=== PATIENT | male | born 1955 | race Caucasian/White ===

== ENCOUNTER 2016-09-07 02:45 | Emergency (ER) | payer MEDICAID ==
[2016-09-07] MEDS ORDERED: AMOX/CLAV 875 MG/125 MG TABLET PO STA (02:53)
[2016-09-07] MEDS ORDERED: AMOX/CLAV 875 MG/125 MG TABLET PO ONE (02:57)
== END 2016-09-07 03:48 | disposition home or self-care (01) ==
DX: J32.9 Chronic sinusitis, unspecified (principal); Z87.891 Personal history of nicotine dependence
CPT/HCPCS: 36415; 71020; 80053; 83690; 84484; 85025; 87275; 87276; 99283; 99284; A9270

== ENCOUNTER 2016-10-16 13:15 | Outpatient (CLI) | payer MEDICAID | END 2016-10-16 13:30 | disposition home or self-care (01) | DX: R07.89 Other chest pain (principal) ==

== ENCOUNTER 2016-11-06 08:29 | Outpatient (CLI) | payer MEDICAID ==
[2016-11-06 13:48] LABS: CHOL/HDL RATIO 6.1 (<5.0); CHOLESTEROL 190 mg/dL; HDL CHOLESTEROL 31 mg/dL; LDL/HDL RATIO 4.1 (<3.6); TRIGLYCERIDES 165 mg/dL; VLDL CHOLESTEROL 33 mg/dL
== END 2016-11-06 08:30 | disposition home or self-care (01) ==
LOC: LAB.N 08:29
PROVIDERS: ATTEND Internal Medicine Cardiovascular Disease
DX: R07.89 Other chest pain (principal); Z68.37 Body mass index [BMI] 37.0-37.9, adult
CPT/HCPCS: 36415; 80061

== ENCOUNTER 2016-12-18 20:41 | Outpatient (CLI) | payer MEDICAID ==
--- NOTE | 2016-12-18 21:39 | Ultrasound Preliminary Report ---
Exam: US Duplex Ext Veins Right IMPRESSION: No evidence for deep venous thrombosis. [facility] SITE ID: [id number]
--- NOTE | 2016-12-18 21:42 | Ultrasound Report ---
EXAM: RIGHT LOWER EXTREMITY VENOUS ULTRASOUND EXAM DATE: 12/18/2016 09:22 PM. CLINICAL HISTORY: LOWER EXTREMITY EDEMA,RIGHT. COMPARISON: None. TECHNIQUE: Real-time sonographic vascular imaging was performed by the tab card press operator through the lower extremity utilizing both color-flow and Doppler spectral analysis. Multiple players club representative static kalpana ges were saved for review. FINDINGS: Common Femoral Vein (CFV): Normal. CFV-GSV Junction: Normal. Profunda Femoral Vein (PFV): Normal. Femoral Vein (FV) Prox: Normal. Femoral Vein (FV) Mid: Normal. Femoral Vein (FV) Dist: Normal. Popliteal Vein: Normal. Posterior Tibial Veins: Normal. Peroneal Veins: Normal. Contralateral Side CFV: Normal. Other: None. IMPRESSION: No evidence for deep venous thrombosis. [facility] Referring Provider Line: [phone] SITE ID: [id number]
== END 2016-12-18 20:42 | disposition home or self-care (01) ==
LOC: DI 20:41
PROVIDERS: ATTEND Family Medicine
DX: R60.0 Localized edema (principal)

== ENCOUNTER 2017-01-02 21:23 | Emergency (ER) | payer MEDICAID ==
[2017-01-02 21:29] VITALS: BP 133/83
[2017-01-02] MEDS ORDERED: AZITHROMYCIN 250 MG TABLET PO STA (22:43)
[2017-01-02] MEDS ORDERED: DEXAMETHASONE 10 MG/ML VIAL PO STA (22:43)
[2017-01-02] MEDS ORDERED: AZITHROMYCIN 250 MG TABLET PO ONE (22:45)
[2017-01-02] MEDS ORDERED: DEXAMETHASONE 10 MG/ML VIAL ONE (22:45)
--- NOTE | 2017-01-02 22:45 | ED Physician Documentation ---
PD HPI HEENT - Stated complaint Stated Complaint: LT EAR/JAW PX - Chief complaint Chief Complaint: Heent - History obtained from History obtained from: Patient, Family - History of Present Illness Timing - onset: How many weeks ago (2) Timing - duration: Weeks (2) Timing - details: Gradual onset, Still present, Waxing and waning Location: Left ear Improves: Medication Associated symptoms: Other (has developed some pain in the left jaw when he bites down.). No: Fever, Congestion, Rhinorrhea, Trismus, Unable to swallow, Swollen nodes, Facial swelling, Headache, Cough Similar symptoms before: Diagnosis (OM) Recently seen: Not recently seen - Additional information Additional information: 61-year-old male has had some pain in his left ear for the past 2 weeks. The pain has waxed and waned and then tonight the pain has mounted over the past 8 hours. He is to finally decided to come in to be seen.He is not having cough congestion or fever associated with this. He has had prior problems with sinus infections when he used to smoke. He has not smoked for 8 years. Review of Systems Constitutional: denies: Fever, Chills Eyes: denies: Loss of vision Ears: reports: Ear pain, Tinnitus/ringing. denies: Loss of hearing Nose: denies: Rhinorrhea / runny nose, Congestion Throat: denies: Sore throat Cardiac: denies: Chest pain / pressure Respiratory: denies: Cough GI: denies: Vomiting PD PAST MEDICAL HISTORY - Past Medical History Past Medical History: Yes Cardiovascular: None Respiratory: None Neuro: None Endocrine/Autoimmune: None GI: None : Kidney stones HEENT: None Psych: Anxiety Musculoskeletal: Osteoarthritis, Chronic back pain Derm: None - Past Surgical History Past Surgical History: Yes Ortho: Knee replacement HEENT: Tonsil/Adenoidectomy - Present Medications Home Medications: Ambulatory Orders Medication Instructions Recorded Confirmed Azithromycin [Zithromax] 250 mg PO DAILY #4 tablet 01/02/17 - Allergies Allergies/Adverse Reactions: Allergies Allergy/AdvReac Type Severity Reaction Status Date / Time aspirin Allergy Rash Verified 01/02/17 21:26 NSAIDS (Non-Steroidal Allergy Rash Verified 01/02/17 21:26 Anti-Inflamma - Social History Does the pt smoke?: No Smoking Status: Former smoker Does the pt drink ETOH?: Yes Does the pt have substance abuse?: No - Immunizations Immunizations are current?: Yes - POLST Patient has POLST: No PD ED PE NORMAL - Vitals Vital signs reviewed: Yes (Hypertensive) - General General: No acute distress, Well developed/nourished - HEENT HEENT: Atraumatic, PERRL, EOMI, Moist mucous membranes, Pharynx benign, Other ( Both TMs are inflamed with flattening of the umbo the left is more so than the right.) - Neck Neck: Supple, no meningeal sign, No bony TTP - Cardiac Cardiac: RRR, No murmur - Respiratory Respiratory: No respiratory distress, Clear bilaterally - Abdomen Abdomen: Soft, Non tender - Derm Derm: Normal color, Warm and dry, No rash - Extremities Extremities: No deformity, No edema - Neuro Neuro: No motor deficit, No sensory deficit - Psych Psych: Normal mood, Normal affect Results - Vitals Vitals: Vital Signs - 24 hr 01/02/17 21:27 Temperature 36.4 C L Heart Rate 84 Respiratory 16 Rate Blood Pressure 133/83 H O2 Saturation 98 Oxygen O2 Source [With Activity] Room air O2 Source Room air PD MEDICAL DECISION MAKING - ED course Complexity details: considered differential, d/w patient, d/w family ED course: 61-year-old male with otitis media bilaterally is treated with dexamethasone 10 mg and azithromycin 500 mg. Departure - Departure Disposition: 01 Home, Self Care Clinical Impression: Otitis media Qualifiers: Otitis media type: suppurative Laterality: bilateral Chronicity: acute Recurrence: not specified as recurrent Spontaneous tympanic membrane rupture: without spontaneous rupture Qualified Code(s): H66.003 - Acute suppurative otitis media without spontaneous rupture of ear drum, bilateral Instructions: ED Otitis Media Acute Adult Follow-Up: Francesco Andrade MD [Primary Care Provider] - Prescriptions: Azithromycin [Zithromax] 250 mg PO DAILY #4 tablet
== END 2017-01-02 23:02 | disposition home or self-care (01) ==
LOC: ED 21:23
DX: H66.003 Acute suppurative otitis media without spontaneous rupture of ear drum, bilateral (principal); Z96.659 Presence of unspecified artificial knee joint; Z87.891 Personal history of nicotine dependence
CPT/HCPCS: 99283; A9270

== ENCOUNTER 2017-01-05 14:27 | Emergency (ER) | payer MEDICAID ==
[2017-01-05] MEDS ORDERED: oxyCOD/ACETAMIN 5 MG/325 MG TABLET PO STA (15:35)
[2017-01-05] MEDS ORDERED: CLINDAMYCIN 150 MG CAPSULE PO STA (15:35)
[2017-01-05] MEDS ORDERED: oxyCOD/ACETAMIN 5 MG/325 MG TABLET PO ONE (16:08)
[2017-01-05] MEDS ORDERED: CLINDAMYCIN 150 MG CAPSULE PO ONE (16:08)
[2017-01-05 17:07] VITALS: BP 116/77
--- NOTE | 2017-01-05 17:09 | ED Physician Documentation ---
History of Present Illness - Stated complaint Stated Complaint: LEFT FACE SWOLLEN - Chief complaint Chief Complaint: Heent - History obtained from History obtained from: Patient - Additonal information Additional information: This patient is a 61-year-old man who presents with a complaint of right periauricular pain and swelling. He says he was diagnosed earlier with ear infection but now the area in front of his ear is swollen, tender and painful. He does say that he has been working outside and might have been dehydrated. He denies ever having this problem before. He denies any fever or chills. He has no chest pain, shortness of breath, nausea, vomiting, constipation or diarrhea. Review of systems: For pertinent positive and negative questions for the review of systems please see history of present illness. Otherwise all other systems have been reviewed and are negative. Dragon disclaimer: Parts of this medical record were created using voice recognition technology. Because of the inherent limitations of this system occasional same sounding word substitutions do occur and persist despite proofreading. Please read the document for context. PD PAST MEDICAL HISTORY - Past Medical History Cardiovascular: None Respiratory: None Neuro: None Endocrine/Autoimmune: None GI: None : Kidney stones HEENT: None Psych: Anxiety Musculoskeletal: Osteoarthritis, Chronic back pain Derm: None - Past Surgical History Past Surgical History: Yes Ortho: Knee replacement HEENT: Tonsil/Adenoidectomy - Present Medications Home Medications: Ambulatory Orders Medication Instructions Recorded Confirmed Azithromycin [Zithromax] 250 mg PO DAILY #4 tablet 01/02/17 01/05/17 Clindamycin HCl 300 mg PO QID #28 capsule 01/05/17 Tramadol HCl 50 mg PO Q8HR PRN #14 tablet 01/05/17 - Allergies Allergies/Adverse Reactions: Allergies Allergy/AdvReac Type Severity Reaction Status Date / Time aspirin Allergy Rash Verified 01/02/17 21:26 NSAIDS (Non-Steroidal Allergy Rash Verified 01/02/17 21:26 Anti-Inflamma - Social History Does the pt smoke?: No Smoking Status: Former smoker Does the pt drink ETOH?: Yes Does the pt have substance abuse?: No - Immunizations Immunizations are current?: Yes - POLST Patient has POLST: No PD ED PE NORMAL - General General: Alert and oriented X 3, No acute distress, Well developed/nourished - HEENT HEENT: Atraumatic, PERRL, EOMI, Ears normal, Other (Soft tissue swelling warmth , and tenderness to right parotid gland.-No stone in Stensen's duct seen) - Neck Neck: Supple, no meningeal sign - Cardiac Cardiac: RRR, No murmur - Respiratory Respiratory: No respiratory distress - Abdomen Abdomen: Normal bowel sounds, Soft, Non tender - Male Male : Deferred - Derm Derm: Normal color, Warm and dry - Extremities Extremities: No deformity, No tenderness to palpate - Neuro Neuro: Alert and oriented X 3, fire supervisor 2-12 intact Results - Vitals Vitals: Vital Signs - 24 hr 01/05/17 01/05/17 14:41 17:06 Temperature 36.7 C 36.6 C Heart Rate 74 70 Respiratory 20 16 Rate Blood Pressure 123/82 H 116/77 O2 Saturation 96 97 Oxygen O2 Source [With Activity] Room air O2 Source Room air PD MEDICAL DECISION MAKING - ED course ED course: Patient is a 61-year-old man who presents with right parotid gland pain, swelling and discomfort on examination there is moderate inflammation and tenderness without fluctuance of the right parotid gland. Structurally the ear , the face and intraoral structures are all normal. The patient's salivary duct was palpated there is no expressible pus. I did not see any obvious stone. At this point in time it looks like a case ParotitisPossibly also related to dehydration which he admits to. At this point in time am recommending increase fluids, changing antibiotics to clindamycin the small amount of pain medication, topical warm compresses and follow-up with his physician. Disposition: To home Clinical impression: 1. Acute peritonitis Departure - Departure Disposition: 01 Home, Self Care Clinical Impression: Parotitis, acute Condition: Good Instructions: ED Submandibular Gland Infec Follow-Up: Francesco Andrade MD [Primary Care Provider] - Prescriptions: Tramadol HCl 50 mg PO Q8HR PRN #14 tablet PRN Reason: Pain Clindamycin HCl 300 mg PO QID #28 capsule Comments: Increase fluid significantly, warm compresses to Right ear area, stop azithromycin, start clindamycin and follow-up with your doctor or return if significantly worse
== END 2017-01-05 17:13 | disposition home or self-care (01) ==
LOC: ED 14:27
DX: K11.20 Sialoadenitis, unspecified (principal); Z87.891 Personal history of nicotine dependence
CPT/HCPCS: 99282; 99283; A9270

== ENCOUNTER 2017-04-07 20:40 | Emergency (ER) | payer MEDICAID ==
[2017-04-07 21:20] LABS: BASOPHILS # (AUTO) 0.1 10^3/uL (0.0-0.1); BASOPHILS % (AUTO) 0.9 %; EOSINOPHILS # (AUTO) 0.3 10^3/uL (0.0-0.7); EOSINOPHILS % (AUTO) 2.8 %; HCT - HEMATOCRIT 45.6 % (42.0-52.0); HGB - HEMOGLOBIN 15.1 g/dL (14.0-18.0); LYMPHOCYTES # (AUTO) 3.1 10^3/uL (1.5-3.5); LYMPHOCYTES % (AUTO) 28.9 %; MEAN CORPUSCULAR HEMOGLOBIN 28.2 pg (27.0-31.0); MEAN CORPUSCULAR HGB CONC 33.2 g/dL (32.0-36.0); MEAN CORPUSCULAR VOLUME 84.9 fL (80.0-94.0); MEAN PLATELET VOLUME 7.3 fL (7.4-11.4); MONOCYTES # (AUTO) 0.9 10^3/uL (0.0-1.0); MONOCYTES % (AUTO) 8.3 %; NEUTROPHILS # (AUTO) 6.3 10^3/uL (1.5-6.6); NEUTROPHILS % (AUTO) 59.1 %; RED BLOOD COUNT 5.37 10^6/uL (4.70-6.10); RED CELL DISTRIBUTION WIDTH 13.3 % (12.0-15.0); UNCORRECTED WHITE BLOOD COUNT 10.7 x10^3/uL; WHITE BLOOD COUNT 10.7 x10^3/uL (4.8-10.8)
[2017-04-07 21:32] LABS: ALBUMIN/GLOBULIN RATIO 1.1 (1.0-2.2); BILIRUBIN,TOTAL 0.6 mg/dL (0.2-1.0); CALCIUM 8.8 mg/dL (8.5-10.3); CREATININE 1.1 mg/dL (0.6-1.2); POTASSIUM 4.1 mmol/L (3.5-5.0); TOTAL PROTEIN 7.5 g/dL (6.7-8.2)
--- NOTE | 2017-04-07 21:40 | XRAY Preliminary Report ---
Exam: XR CHEST 2 VIEW PA/LAT IMPRESSION: Normal 2-view chest radiography. [facility] SITE ID: [id number]
[2017-04-07] MEDS ORDERED: ACETAMINOPHEN 500 MG TABLET PO STA (21:43)
--- NOTE | 2017-04-07 21:47 | XRAY Report ---
EXAM: CHEST RADIOGRAPHY EXAM DATE: 04/07/2017 09:11 PM. CLINICAL HISTORY: Chest pain today. COMPARISON: 09/07/2016. TECHNIQUE: 2 views. FINDINGS: Lungs/Pleura: No focal opacities evident. No pleural effusion. No pneumothorax. Normal volumes. Mediastinum: Heart and mediastinal contours are unremarkable. Other: None. IMPRESSION: Normal 2-view chest radiography. [facility] Referring Provider Line: [phone] SITE ID: [id number]
[2017-04-07] MEDS ORDERED: ACETAMINOPHEN 500 MG TABLET PO ONE (21:53)
[2017-04-07] MEDS ORDERED: LIDOCAINE PATCH 5% TOP STA (22:03)
[2017-04-07 22:05] VITALS: BP 130/87
[2017-04-07] MEDS ORDERED: LIDOCAINE PATCH 5% TOP ONE (22:09)
--- NOTE | 2017-04-07 22:15 | ED Physician Documentation ---
PD HPI TRUNK INJURY - Stated complaint Stated Complaint: CHEST PX/SOA - Chief complaint Chief Complaint: Cardiac - History obtained from History obtained from: Patient, Family - History of Present Illness Location: Anterior chest Type of injury: Other (sneezing) Timing - onset: How many days ago (4) Timing - details: Abrupt onset, Intermittant Quality: Pain, Sharp Worsened by: Moving, Palpating Associated symtptoms: No: Weakness, Numbness, Tingling, Swelling Where injury occured: Home Similar symptoms before: Has not had sx before Recently seen: Not recently seen - Additional information Additional information: Patient is a 62 year old male presenting to the emergency department for left sided chest pain. patient states that he sneezed a few days ago and felt some sharp pain. Patient states that the pain came back when he sneezed again and he felt it when he coughed. Patient states that he thinks he pulled a muscle or hurt his rib. Review of Systems Constitutional: denies: Fever, Chills Eyes: denies: Decreased vision Ears: denies: Ear pain, Drainage/discharge Nose: denies: Congestion Throat: denies: Sore throat Cardiac: reports: Chest pain / pressure. denies: Palpitations Respiratory: denies: Dyspnea, Cough, Wheezing GI: denies: Nausea, Vomiting : denies: Dysuria, Frequency Skin: denies: Rash, Lesions, Abrasion (s), Laceration (s) Musculoskeletal: denies: Neck pain, Back pain, Extremity pain, Joint pain Neurologic: denies: Generalized weakness, Focal weakness, Headache Immunocompromised: denies: Immunocompromised PD PAST MEDICAL HISTORY - Past Medical History Cardiovascular: None Respiratory: None Neuro: None Endocrine/Autoimmune: None GI: None : Kidney stones HEENT: None Psych: Anxiety Musculoskeletal: Osteoarthritis, Chronic back pain Derm: None - Past Surgical History Past Surgical History: Yes Ortho: Knee replacement HEENT: Tonsil/Adenoidectomy - Present Medications Home Medications: Ambulatory Orders Medication Instructions Recorded Confirmed Azithromycin [Zithromax] 250 mg PO DAILY #4 tablet 01/02/17 01/05/17 Clindamycin HCl 300 mg PO QID #28 capsule 01/05/17 Tramadol HCl 50 mg PO Q8HR PRN #14 tablet 01/05/17 Lidocaine Patch 5% [Lidoderm Patch] 1 each TOP DAILY #10 patch 04/07/17 - Allergies Allergies/Adverse Reactions: Allergies Allergy/AdvReac Type Severity Reaction Status Date / Time aspirin Allergy Rash Verified 01/02/17 21:26 NSAIDS (Non-Steroidal Allergy Rash Verified 01/02/17 21:26 Anti-Inflamma - Social History Does the pt smoke?: No Smoking Status: Never smoker Does the pt drink ETOH?: Yes Does the pt have substance abuse?: No - Immunizations Immunizations are current?: Yes - POLST Patient has POLST: No PD ED PE NORMAL - Vitals Vital signs reviewed: Yes - General General: Alert and oriented X 3, No acute distress, Well developed/nourished - HEENT HEENT: Atraumatic, PERRL, Pharynx benign - Neck Neck: Supple, no meningeal sign, No JVD - Cardiac Cardiac: RRR, No murmur, No rub - Respiratory Respiratory: No respiratory distress, Clear bilaterally - Abdomen Abdomen: Soft, Non tender, Non distended - Derm Derm: Normal color, Warm and dry, No rash - Extremities Extremities: No deformity - Neuro Neuro: Alert and oriented X 3, No motor deficit, No sensory deficit, Normal speech - Psych Psych: Normal mood, Normal affect PD ED PE EXPANDED - Cardiac Cardiac: Chest wall TTP (left anterior chest wall tenderness to palpation, no gross deformity) Results - Vitals Vitals: Vital Signs - 24 hr 04/07/17 04/07/17 20:50 22:04 Temperature 36.6 C Heart Rate 80 70 Respiratory 17 18 Rate Blood Pressure 166/100 H 130/87 H O2 Saturation 95 99 Oxygen O2 Source [] Room air O2 Source Room air - EKG (time done) 2052 Rate: Rate (enter#) (80) Rhythm: NSR [place]: Normal Intervals: Normal MS QRS: Normal Ischemia: Normal ST segments Compare to prior EKG: Unchanged from prior EKG Computer interpretation: Agree with computer - Labs Labs: Laboratory Tests 04/07/17 04/07/17 04/07/17 21:14 21:14 21:14 WBC 10.7 RBC 5.37 Hgb 15.1 Hct 45.6 MCV 84.9 MCH 28.2 MCHC 33.2 RDW 13.3 Plt Count 277 MPV 7.3 L Neut # 6.3 Lymph # 3.1 [place] # 0.9 Eos # 0.3 Baso # 0.1 Absolute Nucleated RBC 0.00 Nucleated RBC % 0.0 Sodium 138 Potassium 4.1 Chloride 104 Carbon Dioxide 26 Anion Gap 8.0 BUN 17 Creatinine 1.1 Estimated GFR (MDRD) 68 L Glucose 105 H Calcium 8.8 Total Bilirubin 0.6 AST 21 ALT 32 Alkaline Phosphatase 95 Troponin I < 0.04 Total Protein 7.5 Albumin 4.0 Globulin 3.5 Albumin/Globulin Ratio 1.1 Lipase 28 - Rads (name of study) chest Radiology: Final report received (normal 2 view chest x-ray) PD MEDICAL DECISION MAKING - ED course Complexity details: reviewed old records, reviewed results, re-evaluated patient , considered differential, d/w patient, d/w family ED course: Patient was seen and examined at bedside. labs were drawn, ekg was performed which was normal sinus rhythm. chest x-ray was performed and was within normal limits. Patient was treated with a lidoderm patch. patient had a heart score of 1 for his age and was low risk. Patient required no further work up and was stable for discharge with outpatient follow up. Departure - Departure Disposition: 01 Home, Self Care Clinical Impression: Muscle strain of anterior chest wall Condition: Good Instructions: ED Chest Pain NonCardiac Follow-Up: Francesco Andrade MD [Primary Care Provider] - As Needed Prescriptions: Lidocaine Patch 5% [Lidoderm Patch] 1 each TOP DAILY #10 patch Comments: Your diagnostics today were within normal limits. Your symptoms are unlikely to be cardiac in nature. You should use the lidoderm patches as needed. You can follow up with your pmd as needed if the symptoms don't resolve. You may retunr to the emergency department at any time for new, worsening or uncontrollable symptoms. Discharge Date/Time: 04/07/17 22:23
== END 2017-04-07 22:23 | disposition home or self-care (01) ==
LOC: ED 20:40
DX: S29.011A Strain of muscle and tendon of front wall of thorax, initial encounter (principal); Z96.659 Presence of unspecified artificial knee joint; X58.XXXA Exposure to other specified factors, initial encounter
CPT/HCPCS: 36415; 71020; 80053; 83690; 84484; 85025; 93005; 99283; 99285; A9270

== ENCOUNTER 2017-08-04 09:41 | Outpatient (CLI) | payer MEDICAID ==
--- NOTE | 2017-08-05 09:30 | Nuclear Medicine Report ---
EXAM: TRIPLE-PHASE BONE SCAN LIMITED EXAM DATE: 08/04/2017 02:31 PM. CLINICAL HISTORY: S/P RT PARTIAL KNEE WITH PAIN. COMPARISON: None. TECHNIQUE: Patient was injected with 32.8 mCi of technetium 99m MDP intravenously with flow phase shay ma camera imaging anteriorly over the knees, 5 seconds per frame for 1 minute. Subsequently, blood po ol images of the knees were obtained. The patient returned 3 hours later for multiple spot images of knees. FINDINGS: Flow Phase: There is symmetric flow to bilateral there is linear activity along the lateral femoral c ondyle of the right knee. No other tracer accumulation seen. Blood Pool Phase: Persistent activity along lateral femoral condyle. There is mild uptake over the me dial compartment of the left knee. Delayed Phase: Bone scan images of the knees reveal persistent moderate activity along the lateral fe moral condyle of the right knee. There is also uptake along the medial tibial plateau components of t he knee prosthesis. Intense uptake seen involving the medial compartment of the left knee.. IMPRESSION: 1. Mild delayed phase activity along tibial plateau component of right knee prosthesis. This may repr esent residual post operative activity. Correlation with radiographs may be helpful to exclude loosen ing. 2. There is abnormal activity y along the lateral femoral condyle of the right knee. Correlation with point tenderness at this site and radiographs recommended. 3. Left knee degenerative changes. [facility] Referring Provider Line: [phone] SITE ID: [id number]
== END 2017-08-04 09:42 | disposition home or self-care (01) ==
LOC: DI 09:41
PROVIDERS: ATTEND Orthopaedic Surgery
DX: M25.561 Pain in right knee (principal); M17.12 Unilateral primary osteoarthritis, left knee; Z96.651 Presence of right artificial knee joint
CPT/HCPCS: 78300; A9503

== ENCOUNTER 2017-10-28 08:00 | Outpatient (CLI) | payer MEDICAID ==
[2017-10-28 13:37] LABS: ALBUMIN/GLOBULIN RATIO 1.2 (1.0-2.2); ALKALINE PHOSPHATASE 96 IU/L (42-121); ALT ALANINE AMINOTRANSFERASE 35 IU/L (10-60); AST ASPARTATE AMINOTRANSFERASE 21 IU/L (10-42); BILIRUBIN,TOTAL 0.6 mg/dL (0.2-1.0); BUN - BLOOD UREA NITROGEN 15 mg/dL (6-20); CALCIUM 8.8 mg/dL (8.5-10.3); CARBON DIOXIDE - CO2 27 mmol/L (21-32); CHLORIDE 104 mmol/L (101-111); CHOL/HDL RATIO 5.9 (<5.0); CHOLESTEROL 171 mg/dL; GFR - MDRD 76 (>89); GLUCOSE 148 mg/dL (70-100); HDL CHOLESTEROL 29 mg/dL; LDL CHOLESTEROL,CALCULATED 110 mg/dL; LDL/HDL RATIO 3.8 (<3.6); SODIUM 137 mmol/L (135-145); TOTAL PROTEIN 7.3 g/dL (6.7-8.2); VLDL CHOLESTEROL 32 mg/dL
[2017-10-28 13:50] LABS: BASOPHILS # (AUTO) 0.1 10^3/uL (0.0-0.1); BASOPHILS % (AUTO) 0.6 %; EOSINOPHILS # (AUTO) 0.3 10^3/uL (0.0-0.7); EOSINOPHILS % (AUTO) 3.2 %; HGB - HEMOGLOBIN 14.5 g/dL (14.0-18.0); LYMPHOCYTES % (AUTO) 24.7 %; MEAN CORPUSCULAR HEMOGLOBIN 28.6 pg (27.0-31.0); MEAN CORPUSCULAR HGB CONC 33.8 g/dL (32.0-36.0); MEAN CORPUSCULAR VOLUME 84.6 fL (80.0-94.0); MEAN PLATELET VOLUME 8.2 fL (7.4-11.4); MONOCYTES # (AUTO) 0.7 10^3/uL (0.0-1.0); MONOCYTES % (AUTO) 8.3 %; NEUTROPHILS % (AUTO) 63.2 %; PLT - PLATELET COUNT 271 10^3/uL (130-450); RED BLOOD COUNT 5.08 10^6/uL (4.70-6.10); RED CELL DISTRIBUTION WIDTH 13.3 % (12.0-15.0)
[2017-10-28 13:54] LABS: HB2 TOTAL 16.3 g/dL; HEMOGLOBIN A1C 0.82 g/dL; HEMOGLOBIN A1C % 6.8 % (4.6-6.2)
== END 2017-10-28 08:01 | disposition home or self-care (01) ==
LOC: LAB.N 08:00
PROVIDERS: ATTEND Family Medicine
DX: Z00.00 Encounter for general adult medical examination without abnormal findings (principal); I10 Essential (primary) hypertension; E66.9 Obesity, unspecified; R73.9 Hyperglycemia, unspecified; E78.5 Hyperlipidemia, unspecified
CPT/HCPCS: 36415; 80053; 80061; 83036; 83721; 84443; 85025

== ENCOUNTER 2018-07-15 08:00 | Outpatient (CLI) | payer MEDICAID ==
[2018-07-15 19:13] LABS: HEMOGLOBIN A1C 0.65 g/dL; HEMOGLOBIN A1C % 6.1 % (4.6-6.2)
== END 2018-07-15 23:59 | disposition home or self-care (01) ==
LOC: LAB.N 08:00
PROVIDERS: ATTEND Physician Assistant Medical
DX: E11.9 Type 2 diabetes mellitus without complications (principal)
CPT/HCPCS: 36415; 83036

== ENCOUNTER 2018-07-15 12:11 | Outpatient (CLI) | payer MEDICAID ==
--- NOTE | 2018-07-15 23:37 | XRAY Report ---
Reason: NECK PAIN Procedure Date: 07/15/2018 Accession Number: [id number] / [id number] Procedure: XRN - Cervical Spine 2 View CPT Code: FULL RESULT: EXAM: CERVICAL SPINE RADIOGRAPHY EXAM DATE: 07/15/2018 12:22 PM. CLINICAL HISTORY: NECK PAIN. COMPARISONS: None. TECHNIQUE: 3 views. FINDINGS: Alignment: Normal. No spondylolisthesis or scoliosis. Bones: The cervical vertebral bodies and posterior elements are well visualized from the skull base through C7-T1. No fractures or bone lesions. Disks: Degenerative disk disease, worst at C6-C7. Facets: Mild facet arthropathy. Soft Tissues: Normal. No prevertebral soft tissue swelling. The visualized lung apices are clear. IMPRESSION: Degenerative changes, worst at C6-C7. No evidence of fracture. [facility]
== END 2018-07-15 12:12 | disposition home or self-care (01) ==
LOC: DI.N 12:11
PROVIDERS: ATTEND Physician Assistant Medical
DX: M50.323 Other cervical disc degeneration at C6-C7 level (principal); E11.9 Type 2 diabetes mellitus without complications
CPT/HCPCS: 36415; 72040; 83036

== ENCOUNTER 2018-12-30 18:23 | Emergency (ER) | payer MEDICAID ==
[2018-12-30 18:29] VITALS: BP 139/89
[2018-12-30] MEDS ORDERED: LIDOCAINE 2% 10 ML MDV SUBQ STA (18:46)
--- NOTE | 2018-12-30 18:51 | ED Physician Documentation ---
History of Present Illness - Stated complaint Stated Complaint: RT THUMB PX - Chief complaint Chief Complaint: Trauma Ext - History obtained from History obtained from: Patient - History of Present Illness Timing: How many days ago (3) Pain level max: 6 Pain level now: 6 Improved by: Nothing Worsened by: Palpation - Additonal information Additional information: R thumb pain and swelling. Review of Systems Constitutional: denies: Fever GI: denies: Vomiting, Diarrhea Musculoskeletal: denies: Neck pain, Back pain Neurologic: denies: Headache PD PAST MEDICAL HISTORY - Past Medical History Cardiovascular: None Respiratory: None Endocrine/Autoimmune: Type 2 diabetes GI: Hemorrhoids : None HEENT: None Psych: None Musculoskeletal: Osteoarthritis Derm: None - Past Surgical History Past Surgical History: Yes Ortho: Knee replacement HEENT: Tonsil/Adenoidectomy - Present Medications Home Medications: Ambulatory Orders Medication Instructions Recorded Confirmed Azithromycin [Zithromax] 250 mg PO DAILY #4 tablet 01/02/17 01/05/17 Clindamycin HCl [Clindamycin 300MG 300 mg PO QID #28 capsule 01/05/17 CAP] Tramadol HCl 50 mg PO Q8HR PRN #14 tablet 01/05/17 Lidocaine Patch 5% [Lidoderm Patch] 1 each TOP DAILY #10 patch 04/07/17 Cephalexin [Keflex] 500 mg PO Q6H #28 capsule 12/30/18 - Allergies Allergies/Adverse Reactions: Allergies Allergy/AdvReac Type Severity Reaction Status Date / Time aspirin Allergy Rash Verified 01/02/17 21:26 NSAIDS (Non-Steroidal Allergy Rash Verified 01/02/17 21:26 Anti-Inflamma - Social History Does the pt smoke?: No Smoking Status: Never smoker Does the pt drink ETOH?: Yes Does the pt have substance abuse?: No - Immunizations Immunizations are current?: Yes - POLST Patient has POLST: No PD ED PE NORMAL - Vitals Vital signs reviewed: Yes - General General: Alert and oriented X 3, No acute distress - HEENT HEENT: Moist mucous membranes - Derm Derm: Warm and dry - Extremities Extremities: Other (R thumb - lateral nail fold. mild swelling, erythema. ) - Neuro Neuro: Alert and oriented X 3 Results - Vitals Vitals: Vital Signs - 24 hr 12/30/18 18:26 Temperature 36.6 C Heart Rate 96 Respiratory 16 Rate Blood Pressure 139/89 H O2 Saturation 97 Oxygen O2 Source [With Activity] Room air O2 Source Room air Procedures - General procedure General procedure: paronychia drainage - anesthesia with 2% lidocaine. blunt dissection of the nail fold with #11 blade. Pus removed. tolerated well. [facility] PD MEDICAL DECISION MAKING - ED course Complexity details: considered differential, d/w patient ED course: Patient with a paronychia. This was drained. Tolerated well. Will use warm soaks at home if he starts to have increasing redness will start the antibiotics. Patient counseled regarding signs and symptoms for which I believe and urgent re-evaluation would be necessary. Patient with good understanding of and agreement to plan and is comfortable going home at this time This document was made in part using voice recognition software. While efforts are made to proofread this document, sound alike and grammatical errors may occur. Departure - Departure Disposition: 01 Home, Self Care Clinical Impression: Paronychia Condition: Good Instructions: ED Fingernail Infec Follow-Up: Alejandro Bonner PA-C [Primary Care Provider] - Within 1 week Prescriptions: Cephalexin [Keflex] 500 mg PO Q6H #28 capsule Comments: Place the thumb in warm water soaks for 10 to 15 minutes at a time 3-4 times a day. This will help to continue to drain. If it is worsening over the next 24 to 36 hours, you can start the antibiotics. Return if you worsen Discharge Date/Time: 12/30/18 19:22
[2018-12-30] MEDS ORDERED: TETANUS/DIPHTHERIA/PERTUSSIS 0.5 ML SYRINGE IM ONE (19:08)
[2018-12-30] MEDS ORDERED: BACITRACIN OINT TOP STA (19:08)
== END 2018-12-30 19:22 | disposition home or self-care (01) ==
LOC: ED 18:23
DX: L03.011 Cellulitis of right finger (principal); Z23 Encounter for immunization; E11.9 Type 2 diabetes mellitus without complications
CPT/HCPCS: 10060; 90471; 90715; 99283; A9270

== ENCOUNTER 2019-07-22 08:00 | Outpatient (CLI) | payer MEDICAID | END 2019-07-22 23:59 | disposition home or self-care (01) | LOC: LAB.R 08:00 | PROVIDERS: ATTEND Family Medicine | DX: Z12.10 Encounter for screening for malignant neoplasm of intestinal tract, unspecified (principal) | CPT/HCPCS: 82274 ==

== ENCOUNTER 2019-08-02 09:25 | Outpatient (CLI) | payer MEDICAID ==
--- NOTE | 2019-08-02 15:15 | XRAY Report ---
Reason: SHOULDER PAIN Procedure Date: 08/02/2019 Accession Number: [id number] / [id number] Procedure: XRN - Shoulder 3 View LT CPT Code: Final Report FULL RESULT: EXAM: LEFT SHOULDER RADIOGRAPHY EXAM DATE: 08/02/2019 09:50 AM. CLINICAL HISTORY: SHOULDER PAIN. Extreme left shoulder pain last 2 months with limited range of motion. COMPARISON: 09/09/2014 2:36 PM. TECHNIQUE: 3 views. FINDINGS: Bones: Normal. No fracture or bone lesion. Joints: Advanced left glenohumeral joint degenerative changes with [id number] appearance and prominent inferior osteophytes. Soft tissues: The visualized hemithorax is unremarkable. No soft tissue swelling. IMPRESSION: Advanced left glenohumeral degenerative changes. [facility]
== END 2019-08-02 09:26 | disposition home or self-care (01) ==
LOC: DI.N 09:25
PROVIDERS: ATTEND Family Medicine
DX: M19.012 Primary osteoarthritis, left shoulder (principal)

== ENCOUNTER 2019-08-29 10:03 | Emergency (ER) | payer MEDICAID ==
--- NOTE | 2019-08-29 10:29 | ED Physician Documentation ---
History of Present Illness - Stated complaint Stated Complaint: R FOOT SWELLING - Chief complaint Chief Complaint: Ext Problem - History obtained from History obtained from: Patient, Family - History of Present Illness Timing: How many days ago (2) - Additonal information Additional information: 64-year-old male has had a prior traumatic amputation of the right great toe and second toe in the 1970s has now developed some redness swelling and tenderness to the area of the prior surgical site. He does not have any lymphangitic streaking and he has not had a fever. Review of Systems Constitutional: denies: Fever Eyes: denies: Decreased vision Ears: denies: Ear pain Nose: denies: Congestion Throat: denies: Oral lesions / sores, Sore throat Respiratory: denies: Cough GI: denies: Vomiting Skin: denies: Rash Musculoskeletal: reports: Extremity pain, Joint pain, Extremity swelling, Joint swelling, Pain with weight bearing. denies: Neck pain, Back pain Neurologic: denies: Generalized weakness, Focal weakness, Numbness PD PAST MEDICAL HISTORY - Past Medical History Cardiovascular: None Respiratory: None Endocrine/Autoimmune: Type 2 diabetes GI: Hemorrhoids : None HEENT: None Psych: None Musculoskeletal: Osteoarthritis Derm: None - Past Surgical History Past Surgical History: Yes Ortho: Knee replacement HEENT: Tonsil/Adenoidectomy - Present Medications Home Medications: Ambulatory Orders Medication Instructions Recorded Confirmed Amox/Clav 875/125 [Augmentin] 1 each PO Q12H #20 tablet 08/29/19 Metformin HCl [Metformin HCl ER] 500 mg PO DAILY 08/29/19 08/29/19 - Allergies Allergies/Adverse Reactions: Allergies Allergy/AdvReac Type Severity Reaction Status Date / Time aspirin Allergy Rash Verified 08/29/19 10:11 NSAIDS (Non-Steroidal Allergy Rash Verified 08/29/19 10:11 Anti-Inflamma - Social History Does the pt smoke?: No Smoking Status: Never smoker Does the pt drink ETOH?: Yes Does the pt have substance abuse?: No - Immunizations Immunizations are current?: Yes - POLST Patient has POLST: No PD ED PE NORMAL - Vitals Vital signs reviewed: Yes (hypertensive) - General General: Alert and oriented X 3, No acute distress, Well developed/nourished - HEENT HEENT: Atraumatic, PERRL, EOMI - Respiratory Respiratory: No respiratory distress - Derm Derm: Normal color, Warm and dry, No rash - Extremities Extremities: Other (There is a deformity to the right foot consistent with a prior amputation of the right great toe and second toe. The skin overlying the area of prior amputation is erythematous it is mildly swollen there is no lymphangitic streaking there is some mild tenderness to the area.) - Neuro Neuro: No motor deficit, No sensory deficit Eye Opening: Spontaneous Motor: Obeys Commands Verbal: Oriented GCS Score: 15 - Psych Psych: Normal mood, Normal affect Results - Vitals Vitals: Vital Signs - 24 hr 08/29/19 08/29/19 10:11 10:47 Temperature 36.9 C 36.9 C Heart Rate 90 75 Respiratory 17 18 Rate Blood Pressure 154/103 H 136/84 H O2 Saturation 97 97 Oxygen O2 Source [With Activity] Room air O2 Source Room air - Labs Labs: Laboratory Tests 08/29/19 10:15 POC Whole Bld Glucose 138 H - Rads (name of study) foot Radiology: Prelim report reviewed (Impression: No acute osseous abnormality identified status post first and second toe amputation.), EMP read indepedently, See rad report PD MEDICAL DECISION MAKING - ED course Complexity details: reviewed results, considered differential, d/w patient, d/w family ED course: 64-year-old male with what appears to be an infection over a site of a prior amputation. Departure - Departure Disposition: 01 Home, Self Care Clinical Impression: Cellulitis Qualifiers: Site of cellulitis: extremity Site of cellulitis of extremity: lower extremity Laterality: right Qualified Code(s): L03.115 - Cellulitis of right lower limb Condition: Stable Instructions: ED Infec Skin Cellulitis Follow-Up: BITA BUTCHER MD [Primary Care Provider] - Prescriptions: Amox/Clav 875/125 [Augmentin] 1 each PO Q12H #20 tablet Discharge Date/Time: 08/29/19 11:22
[2019-08-29 10:48] VITALS: BP 136/84
[2019-08-29] MEDS ORDERED: cefTRIAXone 1 GM VIAL IM STA (10:52)
[2019-08-29] MEDS ORDERED: LIDOCAINE 1% 2 ML VIAL MC ONE (10:52)
--- NOTE | 2019-08-29 11:11 | XRAY Report ---
Reason: redness and swelling at prior amputation site Procedure Date: 08/29/2019 Accession Number: [id number] / [id number] Procedure: XR - Foot 3 View RT CPT Code: Final Report FULL RESULT: EXAM: RIGHT FOOT RADIOGRAPHY EXAM DATE: 08/29/2019 10:38 AM. CLINICAL HISTORY: Right foot pain. COMPARISON: None. TECHNIQUE: 3 views. FINDINGS: Bones: First and second toe amputation changes are seen. No fracture or bone lesion is identified. No osseous erosions or bony destructive changes are suggested. Joints: Moderate degenerative changes are noted throughout the mid and forefoot structures. Alignment is preserved. Soft Tissues: Normal. No soft tissue swelling. IMPRESSION: No acute osseous abnormality identified status post first and second toe amputation. RADIA
== END 2019-08-29 11:22 | disposition home or self-care (01) ==
LOC: ED 10:03
DX: L03.115 Cellulitis of right lower limb (principal); E11.9 Type 2 diabetes mellitus without complications; Z79.84 Long term (current) use of oral hypoglycemic drugs; Z89.411 Acquired absence of right great toe; Z89.421 Acquired absence of other right toe(s)
CPT/HCPCS: 96372; 99283; 99284

== ENCOUNTER 2019-09-18 12:42 | Emergency (ER) | payer MEDICAID, OTHER ==
[2019-09-18 12:51] VITALS: BP 158/88
--- NOTE | 2019-09-18 13:00 | ED Physician Documentation ---
PD HPI LOWER EXT INJURY - Stated complaint Stated Complaint: R FOOT PX - Chief complaint Chief Complaint: Ext Problem - History obtained from History obtained from: Patient - History of Present Illness PD HPI LOW EXT INJURY LOCATION: Right (64-year-old gentleman with type 2 diabetes, remotely had foot trauma and had an amputation of the first and second toes of the right foot. He was seen here about 3 weeks ago earlier this month for foot cellulitis that improved on Augmentin but then got worse again. Pain is bad at night but denies fevers or chills.) Review of Systems Ten Systems: 10 systems reviewed and negative Constitutional: denies: Fever, Chills Cardiac: denies: Chest pain / pressure, Palpitations Respiratory: denies: Dyspnea, Cough PD PAST MEDICAL HISTORY - Past Medical History Past Medical History: Yes Cardiovascular: None Respiratory: None Neuro: None Endocrine/Autoimmune: Type 2 diabetes GI: Hemorrhoids : None HEENT: None Psych: None Musculoskeletal: Osteoarthritis Derm: None - Past Surgical History Past Surgical History: Yes Ortho: Knee replacement HEENT: Tonsil/Adenoidectomy - Present Medications Home Medications: Ambulatory Orders Medication Instructions Recorded Confirmed Amox/Clav 875/125 [Augmentin] 1 each PO Q12H #20 tablet 08/29/19 Metformin HCl [Metformin HCl ER] 500 mg PO DAILY 08/29/19 08/29/19 Clindamycin HCl [Clindamycin 300MG 300 mg PO Q6H #56 capsule 09/18/19 CAP] Oxycodone HCl/Acetaminophen 1 - 2 each PO Q6H PRN #10 tablet 09/18/19 [Percocet 5-325 mg Tablet] - Allergies Allergies/Adverse Reactions: Allergies Allergy/AdvReac Type Severity Reaction Status Date / Time aspirin Allergy Rash Verified 09/18/19 12:47 NSAIDS (Non-Steroidal Allergy Rash Verified 09/18/19 12:47 Anti-Inflamma - Social History Does the pt smoke?: No Smoking Status: Never smoker Does the pt drink ETOH?: Yes Does the pt have substance abuse?: No - Immunizations Immunizations are current?: Yes - POLST Patient has POLST: No PD ED PE NORMAL - Vitals Vital signs reviewed: Yes - General General: Alert and oriented X 3, No acute distress - Extremities Extremities: Other (He is status post remote amputation of the first and second toes with some heaped up skin in places, there is nothing to culture but there is mild cellulitis in the area. No evidence of abscess clinically.) - Neuro Neuro: Alert and oriented X 3, Normal speech Results - Vitals Vitals: Vital Signs - 24 hr 09/18/19 12:47 Temperature 36.9 C Heart Rate 83 Respiratory 18 Rate Blood Pressure 158/88 H O2 Saturation 96 Oxygen O2 Source [With Activity] Room air O2 Source Room air PD MEDICAL DECISION MAKING - ED course ED course: He presents with a recurrent right foot cellulitis. He is advised to go on a longer course of antibiotics which is prescribed and follow-up with his PCP for consideration of MRI if that is not curative. Departure - Departure Disposition: 01 Home, Self Care Clinical Impression: Cellulitis Qualifiers: Site of cellulitis: extremity Site of cellulitis of extremity: lower extremity Laterality: right Qualified Code(s): L03.115 - Cellulitis of right lower limb Condition: Good Record reviewed to determine appropriate education?: Yes Instructions: Cellulitis Dc Prescriptions: Clindamycin HCl [Clindamycin 300MG CAP] 300 mg PO Q6H #56 capsule Oxycodone HCl/Acetaminophen [Percocet 5-325 mg Tablet] 1 - 2 each PO Q6H PRN #10 tablet PRN Reason: pain Comments: Follow-up with Dr. Martinez regardless, consider MRI if symptoms do not improve significantly. Return if worse.
== END 2019-09-18 13:02 | disposition home or self-care (01) ==
LOC: ED 12:42
DX: L03.115 Cellulitis of right lower limb (principal); E11.628 Type 2 diabetes mellitus with other skin complications; Z79.84 Long term (current) use of oral hypoglycemic drugs
CPT/HCPCS: 99282; 99283

== ENCOUNTER 2019-10-02 13:35 | Outpatient (CLI) | payer MEDICAID | END 2019-10-02 13:36 | disposition home or self-care (01) | LOC: DI 13:35 | PROVIDERS: ATTEND Family Medicine | DX: Z53.9 Procedure and treatment not carried out, unspecified reason (principal) ==

== ENCOUNTER 2019-10-12 12:41 | Outpatient (CLI) | payer MEDICAID ==
[2019-10-12 13:00] LABS: CREATININE 1.1 mg/dL (0.6-1.2)
[2019-10-12] MEDS ORDERED: GADOBUTROL 10 MMOL/10 ML VIAL IVP ONE (14:44)
--- NOTE | 2019-10-13 03:20 | MRI Report ---
Reason: RT FOOT CELLULITIS Procedure Date: 10/12/2019 Accession Number: [id number] / [id number] Procedure: MRI - Foot RT W/WO CPT Code: Final Report FULL RESULT: EXAM: RIGHT FOREFOOT MRI WITH AND WITHOUT CONTRAST EXAM DATE: 10/12/2019 03:02 PM CLINICAL HISTORY: Right foot cellulitis. Pain at dorsum of the forefoot. COMPARISON: FOOT 3 VIEW RT 08/29/2019 10:21 AM. TECHNIQUE: Multiplanar, multisequence T1-weighted and fluid-sensitive sequences of the forefoot were obtained before and after the administration of 10 mL of Gadavist. Other: And imaging marker was placed at the dorsum of the toes at the level of the third metatarsal phalangeal joint. FINDINGS: Bones: Marrow edema about the second through fourth metatarsal phalangeal joints. No acute fractures. No bone lesions. Status post amputation of the great toe phalanges and transphalangeal amputation at the proximal phalanx of the second toe. Joints: No subluxations. Joints degeneration with subchondral sclerosis, deformity, and joint effusions at the second through fourth metatarsal phalangeal joints. Tendons: The flexor and extensor tendons are unremarkable. Musculature: Edema in the muscles of the distal forefoot/toes. Other: Diffuse soft tissue edema about the toes and distal forefoot. IMPRESSION: No MRI finding of osteomyelitis. Superficial and deep soft tissue edema and hyperemia, which may reflect cellulitis. No soft tissue abscess. Osteoarthritis involving the second through fourth metatarsal phalangeal joints. Status post amputation of the first and second toes. RADIA
== END 2019-10-12 12:42 | disposition home or self-care (01) ==
LOC: LAB 12:41
PROVIDERS: ATTEND Family Medicine
DX: L03.115 Cellulitis of right lower limb (principal); R60.0 Localized edema; M19.071 Primary osteoarthritis, right ankle and foot; Z89.421 Acquired absence of other right toe(s)
CPT/HCPCS: 36415; 82565

== ENCOUNTER 2019-10-12 21:32 | Emergency (ER) | payer MEDICAID ==
[~2019-10-12 21:32] MED LIST: GADOBUTROL 10 MMOL/10 ML VIAL ONE
--- NOTE | 2019-10-12 22:53 | ED Physician Documentation ---
History of Present Illness - Stated complaint Stated Complaint: RT FOOT SWELL/PX - Chief complaint Chief Complaint: Ext Problem - History obtained from History obtained from: Patient - History of Present Illness Timing: Today Pain level now: 8 Improved by: rest Worsened by: palpation, weight-bearing - Additonal information Additional information: patient says he has had recurrent RLE cellulitis x 1.5 months and has been on several courses of antibiotic, most recently clindamycin (prescribed from this ED). he says the pain, redness, and swelling of the RLE improved significantly with this most recent abx, but that the symptoms returned this morning. he had MRI of the RLE earlier this afternoon, results not yet available Review of Systems Constitutional: reports: Reviewed and negative Skin: reports: Rash Musculoskeletal: reports: Extremity pain, Extremity swelling, Pain with weight bearing PD PAST MEDICAL HISTORY - Past Medical History Past Medical History: Yes Cardiovascular: None Respiratory: None Neuro: None Endocrine/Autoimmune: Type 2 diabetes GI: Hemorrhoids : None HEENT: None Psych: None Musculoskeletal: Osteoarthritis Derm: None - Past Surgical History Past Surgical History: Yes Ortho: Knee replacement HEENT: Tonsil/Adenoidectomy - Present Medications Home Medications: Ambulatory Orders Medication Instructions Recorded Confirmed Amox/Clav 875/125 [Augmentin] 1 each PO Q12H #20 tablet 08/29/19 Metformin HCl [Metformin HCl ER] 500 mg PO DAILY 08/29/19 08/29/19 Clindamycin HCl [Clindamycin 300MG 300 mg PO Q6H #56 capsule 09/18/19 CAP] Oxycodone HCl/Acetaminophen 1 - 2 each PO Q6H PRN #10 tablet 09/18/19 [Percocet 5-325 mg Tablet] Sulfamethox/Trimeth 800/160 1 each PO BID #14 tablet 10/12/19 [Bactrim Ds 800/160] - Allergies Allergies/Adverse Reactions: Allergies Allergy/AdvReac Type Severity Reaction Status Date / Time aspirin Allergy Rash Verified 09/18/19 12:47 NSAIDS (Non-Steroidal Allergy Rash Verified 10/12/19 21:35 Anti-Inflamma - Social History Does the pt smoke?: No Smoking Status: Never smoker Does the pt drink ETOH?: Yes Does the pt have substance abuse?: No - Immunizations Immunizations are current?: Yes - POLST Patient has POLST: No PD ED PE NORMAL - Vitals Vital signs reviewed: Yes - General General: Alert and oriented X 3, Well developed/nourished, Other (appears to be having moderate painful distress) PD ED PE EXPANDED - Extremities Extremities: Tenderness, Swelling, Other (S/p amputation of right great and second toes; there is tenderness, erythema, and exquisite tenderness at amputation site (stumps of great and second toes)) Results - Vitals Vitals: Oxygen O2 Source [With Activity] Room air O2 Source Room air PD MEDICAL DECISION MAKING - ED course Complexity details: considered differential, d/w patient Departure - Departure Disposition: Home, Self Care Clinical Impression: Cellulitis Qualifiers: Site of cellulitis: extremity Site of cellulitis of extremity: lower extremity Laterality: right Qualified Code(s): L03.115 - Cellulitis of right lower limb Condition: Good Instructions: ED Infec Skin Cellulitis Follow-Up: BITA BUTCHER MD [Primary Care Provider] - Prescriptions: Sulfamethox/Trimeth 800/160 [Bactrim Ds 800/160] 1 each PO BID #14 tablet Discharge Date/Time: 10/12/19 23:40
[2019-10-12] MEDS ORDERED: SULFAMETH/TRIMETH DS 800/160 MG TABLET PO STA (23:17)
[2019-10-12] MEDS ORDERED: HYDROmorphone 1 MG/ML CARPUJECT IM STA (23:17)
[2019-10-12 23:36] VITALS: BP 155/95
== END 2019-10-12 23:40 | disposition home or self-care (01) ==
LOC: ED 21:32
DX: L03.115 Cellulitis of right lower limb (principal); E11.9 Type 2 diabetes mellitus without complications; R60.0 Localized edema; M19.071 Primary osteoarthritis, right ankle and foot; Z89.421 Acquired absence of other right toe(s); Z79.84 Long term (current) use of oral hypoglycemic drugs
CPT/HCPCS: 36415; 73720; 82565; 96374; 99283; A9270; A9585; J1170

== ENCOUNTER 2019-11-19 14:07 | Outpatient (CLI) | payer MEDICAID ==
[2019-11-19 18:10] LABS: BASOPHILS # (AUTO) 0.1 10^3/uL (0.0-0.1); BASOPHILS % (AUTO) 0.7 %; EOSINOPHILS # (AUTO) 0.2 10^3/uL (0.0-0.7); EOSINOPHILS % (AUTO) 2.7 %; HGB - HEMOGLOBIN 14.6 g/dL (14.0-18.0); LYMPHOCYTES # (AUTO) 1.7 10^3/uL (1.5-3.5); LYMPHOCYTES % (AUTO) 19.7 %; MEAN CORPUSCULAR HEMOGLOBIN 28.9 pg (27.0-31.0); MEAN CORPUSCULAR HGB CONC 32.7 g/dL (32.0-36.0); MEAN CORPUSCULAR VOLUME 88.1 fL (80.0-94.0); MONOCYTES # (AUTO) 0.7 10^3/uL (0.0-1.0); MONOCYTES % (AUTO) 8.3 %; NEUTROPHILS # (AUTO) 5.8 10^3/uL (1.5-6.6); NEUTROPHILS % (AUTO) 68.1 %; PLT - PLATELET COUNT 309 10^3/uL (130-450); RED BLOOD COUNT 5.06 10^6/uL (4.70-6.10); RED CELL DISTRIBUTION WIDTH 13.4 % (12.0-15.0); WHITE BLOOD COUNT 8.6 x10^3/uL (4.8-10.8)
[2019-11-19 18:52] LABS: ALBUMIN 3.9 g/dL (3.2-5.5); ALKALINE PHOSPHATASE 88 IU/L (42-121); ALT ALANINE AMINOTRANSFERASE 26 IU/L (10-60); AST ASPARTATE AMINOTRANSFERASE 17 IU/L (10-42); BILIRUBIN,TOTAL 0.5 mg/dL (0.2-1.0); BUN - BLOOD UREA NITROGEN 20 mg/dL (6-20); CARBON DIOXIDE - CO2 23 mmol/L (21-32); CHLORIDE 107 mmol/L (101-111); CHOL/HDL RATIO 5.7 (<5.0); CHOLESTEROL 182 mg/dL; CREATININE 1.4 mg/dL (0.6-1.2); GLUCOSE 117 mg/dL (70-100); HDL CHOLESTEROL 32 mg/dL; LDL CHOLESTEROL,CALCULATED 105 mg/dL; LDL/HDL RATIO 3.3 (<3.6); SODIUM 137 mmol/L (135-145); TOTAL PROTEIN 7.8 g/dL (6.7-8.2); URIC ACID 7.1 mg/dL (2.6-7.2); VLDL CHOLESTEROL 45 mg/dL
[2019-11-19 18:54] LABS: PSA FREE 0.18 ng/mL (0.16-2.81)
[2019-11-19 18:55] LABS: PSA TOTAL 0.582 ng/mL (0.000-2.000)
== END 2019-11-19 23:59 | disposition home or self-care (01) ==
LOC: LAB.WCP 14:07
PROVIDERS: ATTEND Registered Nurse
DX: M10.9 Gout, unspecified (principal); E78.5 Hyperlipidemia, unspecified; I10 Essential (primary) hypertension; E66.9 Obesity, unspecified; R73.9 Hyperglycemia, unspecified; M79.671 Pain in right foot
CPT/HCPCS: 36415; 80053; 80061; 83721; 84153; 84154; 84443; 84550; 85025

== ENCOUNTER 2019-11-26 08:00 | Outpatient (CLI) | payer MEDICAID | END 2019-11-26 23:59 | disposition home or self-care (01) | LOC: LAB.WCP 08:00 | PROVIDERS: ATTEND Family Medicine | DX: Z01.84 Encounter for antibody response examination (principal); B34.9 Viral infection, unspecified | CPT/HCPCS: 36415; 86769 ==

== ENCOUNTER 2020-05-25 02:50 | Emergency (ER) | payer MEDICAID ==
--- NOTE | 2020-05-25 03:48 | ED Physician Documentation ---
PD HPI NECK PAIN - Stated complaint Stated Complaint: NECK/ARM PX - Chief complaint Chief Complaint: Ext Problem - History obtained from History obtained from: Patient - History of Present Illness Timing - onset: Last night (approximately 24 hours [employer]) Timing - details: Abrupt onset Pain level now: 8 Location: Left Quality: Pain Associated symptoms: No: Fever, Weakness, Numbness Improves with: Rest, Position Worsened by: Movement Similar symptoms before: Has not had sx before Recently seen: Clinic - Additional information Additional information: c/o sudden onset left-sided neck pain that radiates down LUE. He says he was asleep and was awoken by the sudden onset of this pain without apparent inciting incident; onset approximately 24 hours prior to ED arrival. He says he has not had this pain before. Pain is worse with movement involving LUE. He says he was recently evaluated in outpatient setting for left shoulder pain and was given injection of steroid and referred to orthopedic surgery with plan for MRI. However, he says the pain he has on tonight's presentation is different from the left shoulder pain for which he was recently evaluated. He was also prescribed vicodin by PMD when he was recently seen but he reports no improvement in this pain despite taking the vicodin. Review of Systems Constitutional: denies: Fever Cardiac: reports: Reviewed and negative Respiratory: reports: Reviewed and negative GI: reports: Reviewed and negative Skin: denies: Rash Musculoskeletal: reports: Neck pain, Extremity pain Neurologic: denies: Generalized weakness, Focal weakness, Numbness, Headache PD PAST MEDICAL HISTORY - Past Medical History Cardiovascular: None Respiratory: None Neuro: None Endocrine/Autoimmune: Type 2 diabetes GI: Hemorrhoids : None HEENT: None Psych: None Musculoskeletal: Osteoarthritis Derm: None - Past Surgical History Past Surgical History: Yes Ortho: Knee replacement HEENT: Tonsil/Adenoidectomy - Present Medications Home Medications: Ambulatory Orders Medication Instructions Recorded Confirmed Amox/Clav 875/125 [Augmentin] 1 each PO Q12H #20 tablet 08/29/19 Metformin HCl [Metformin HCl ER] 500 mg PO DAILY 08/29/19 08/29/19 Clindamycin HCl [Clindamycin 300MG 300 mg PO Q6H #56 capsule 09/18/19 CAP] Oxycodone HCl/Acetaminophen 1 - 2 each PO Q6H PRN #10 tablet 03/21/20 [Percocet 5-325 mg Tablet] Sulfamethox/Trimeth 800/160 1 each PO BID #14 tablet 10/12/19 [Bactrim Ds 800/160] Cyclobenzaprine [Flexeril] 10 mg PO TID PRN #20 tablet 05/25/20 Oxycodone HCl/Acetaminophen 1 - 2 each PO Q6H PRN #14 tablet 05/25/20 [Percocet 5-325 mg Tablet] - Allergies Allergies/Adverse Reactions: Allergies Allergy/AdvReac Type Severity Reaction Status Date / Time aspirin Allergy Rash Verified 05/25/20 03:10 NSAIDS (Non-Steroidal Allergy Rash Verified 05/25/20 03:10 Anti-Inflamma - Social History Does the pt smoke?: No Smoking Status: Never smoker Does the pt drink ETOH?: Yes Does the pt have substance abuse?: No - Immunizations Immunizations are current?: Yes - POLST Patient has POLST: No PD ED PE NORMAL - Vitals Vital signs reviewed: Yes - General General: Alert and oriented X 3, Well developed/nourished, Other (appears to be in painful discomfort at times during H+P) - HEENT HEENT: Moist mucous membranes - Neck Neck: Supple, no meningeal sign, No bony TTP - Cardiac Cardiac: RRR, No murmur - Respiratory Respiratory: No respiratory distress, Clear bilaterally - Derm Derm: Normal color, Warm and dry - Neuro Neuro: Alert and oriented X 3, No motor deficit, No sensory deficit Results - Vitals Vitals: Oxygen O2 Source [With Activity] Room air O2 Source Room air - EKG (time done) No standard instances Rate: Rate (enter#) (73) Rhythm: NSR [place]: Normal Intervals: Normal OR QRS: Normal Ischemia: Normal ST segments - Labs Labs: Laboratory Tests 05/25/20 05/25/20 05/25/20 04:17 04:17 04:17 WBC 8.9 RBC 4.91 Hgb 14.1 Hct 43.0 MCV 87.6 MCH 28.7 MCHC 32.8 RDW 13.3 Plt Count 268 MPV 9.6 Neut # (Auto) 5.6 Lymph # (Auto) 2.1 [place] # (Auto) 0.8 Eos # (Auto) 0.3 Baso # (Auto) 0.0 Absolute Nucleated RBC 0.00 Nucleated RBC % 0.0 Sodium 138 Potassium 4.1 Chloride 106 Carbon Dioxide 24 Anion Gap 8.0 BUN 19 Creatinine 1.1 Estimated GFR (MDRD) 67 L Glucose 143 H Calcium 8.9 Total Bilirubin 1.0 AST 15 ALT 21 Alkaline Phosphatase 79 Troponin I High Sens 3.0 Total Protein 7.4 Albumin 3.8 Globulin 3.6 Albumin/Globulin Ratio 1.1 Lipase 35 - Rads (name of study) chest xray Radiology: Prelim report reviewed, See rad report PD MEDICAL DECISION MAKING - ED course Complexity details: reviewed old records, reviewed results, re-evaluated patient, considered differential, d/w patient ED course: suspect musculoskeletal etiology, possibly cervical radiculopathy based on a distinct worsening of symptoms with movement. Without preceding event such as injury and based on location (left side of neck and radiating down LUE) with reported lack of history of similar symptoms, cardiac-oriented ED testing performed and these results are unremarkable. he reports significant improvement after IM dilaudid and po flexeril. Departure - Departure Disposition: 01 Home, Self Care Clinical Impression: Cervical radiculopathy Condition: Good Instructions: ED Cervical Radiculopathy Prescriptions: Cyclobenzaprine [Flexeril] 10 mg PO TID PRN #20 tablet PRN Reason: Spasms Oxycodone HCl/Acetaminophen [Percocet 5-325 mg Tablet] 1 - 2 each PO Q6H PRN #14 tablet PRN Reason: pain Discharge Date/Time: 05/25/20 05:39
[2020-05-25] MEDS ORDERED: CYCLOBENZAPRINE 10 MG TABLET PO STA (04:03)
[2020-05-25] MEDS ORDERED: HYDROmorphone 1 MG/ML CARPUJECT IM STA (04:03)
[2020-05-25 04:22] LABS: BASOPHILS % (AUTO) 0.4 %; EOSINOPHILS # (AUTO) 0.3 10^3/uL (0.0-0.7); EOSINOPHILS % (AUTO) 3.4 %; HGB - HEMOGLOBIN 14.1 g/dL (14.0-18.0); LYMPHOCYTES # (AUTO) 2.1 10^3/uL (1.5-3.5); MEAN CORPUSCULAR HEMOGLOBIN 28.7 pg (27.0-31.0); MEAN CORPUSCULAR HGB CONC 32.8 g/dL (32.0-36.0); MEAN CORPUSCULAR VOLUME 87.6 fL (80.0-94.0); MEAN PLATELET VOLUME 9.6 fL (7.4-11.4); MONOCYTES # (AUTO) 0.8 10^3/uL (0.0-1.0); MONOCYTES % (AUTO) 9.1 %; NEUTROPHILS # (AUTO) 5.6 10^3/uL (1.5-6.6); NEUTROPHILS % (AUTO) 62.7 %; PLT - PLATELET COUNT 268 10^3/uL (130-450); RED BLOOD COUNT 4.91 10^6/uL (4.70-6.10); RED CELL DISTRIBUTION WIDTH 13.3 % (12.0-15.0); WHITE BLOOD COUNT 8.9 x10^3/uL (4.8-10.8)
[2020-05-25 04:36] LABS: ALBUMIN 3.8 g/dL (3.2-5.5); ALBUMIN/GLOBULIN RATIO 1.1 (1.0-2.2); CALCIUM 8.9 mg/dL (8.5-10.3); CREATININE 1.1 mg/dL (0.6-1.2); TOTAL PROTEIN 7.4 g/dL (6.7-8.2)
[2020-05-25] MEDS ORDERED: oxyCODONE/ACET 5/325 Prepack 4 PO STA (05:27)
[2020-05-25] MEDS ORDERED: CYCLOBENZAPRINE 10 MG Prepack 2 PO STA (05:27)
[2020-05-25 05:39] VITALS: BP 138/88
--- NOTE | 2020-05-25 09:45 | XRAY Report ---
PROCEDURE: Chest 1 View X-Ray INDICATIONS: Chest pain TECHNIQUE: One view of the chest was acquired. COMPARISON: 04/07/2017, 09/07/2016 FINDINGS: Surgical changes and devices: None. Lungs and pleura: An incomplete inspiratory result is noted, with low lung volumes and crowding of t he vascular markings. No focal infiltrates are seen. No large pneumothorax or large pleural effusion can be seen. Mediastinum: Mediastinal contours appear normal. Heart size is normal. Bones and chest wall: No suspicious bony lesions. Overlying soft tissues appear unremarkable. IMPRESSION: Limited portable chest examination, without an acute abnormality identified. Note: No significant discrepancy from the preliminary report. Reviewed by: Daniel Romero MD on 05/25/2020 8:44 AM [facility] Approved by: Daniel Romero MD on 05/25/2020 8:44 AM [facility] Station ID: [id number]
== END 2020-05-25 05:39 | disposition home or self-care (01) ==
LOC: ED 02:50
DX: M54.12 Radiculopathy, cervical region (principal); M54.2 Cervicalgia; E11.9 Type 2 diabetes mellitus without complications; Z79.84 Long term (current) use of oral hypoglycemic drugs
CPT/HCPCS: 36415; 71045; 80053; 83690; 84484; 85025; 93005; 96372; 99284; A9270; J1170

== ENCOUNTER 2020-08-10 13:32 | Emergency (ER) | payer MEDICAID ==
[2020-08-10 14:29] LABS: BASOPHILS % (AUTO) 0.4 %; EOSINOPHILS # (AUTO) 0.2 10^3/uL (0.0-0.7); EOSINOPHILS % (AUTO) 2.2 %; HGB - HEMOGLOBIN 14.9 g/dL (14.0-18.0); LYMPHOCYTES # (AUTO) 1.6 10^3/uL (1.5-3.5); LYMPHOCYTES % (AUTO) 16.4 %; MEAN CORPUSCULAR HEMOGLOBIN 28.8 pg (27.0-31.0); MEAN CORPUSCULAR VOLUME 87.2 fL (80.0-94.0); MEAN PLATELET VOLUME 9.6 fL (7.4-11.4); MONOCYTES # (AUTO) 0.5 10^3/uL (0.0-1.0); MONOCYTES % (AUTO) 5.2 %; NEUTROPHILS # (AUTO) 7.3 10^3/uL (1.5-6.6); NEUTROPHILS % (AUTO) 75.5 %; PLT - PLATELET COUNT 310 10^3/uL (130-450); RED BLOOD COUNT 5.17 10^6/uL (4.70-6.10); RED CELL DISTRIBUTION WIDTH 12.5 % (12.0-15.0); WHITE BLOOD COUNT 9.6 x10^3/uL (4.8-10.8)
--- NOTE | 2020-08-10 14:31 | ED Physician Documentation ---
History of Present Illness - Stated complaint Stated Complaint: L SIDE FACE SWELLING - Chief complaint Chief Complaint: General - Additonal information Additional information: 65-year-old diabetic male presents the emergency department with acute onset left sided facial swelling. He denies fevers or dental pain. He admits that he does not check his blood sugars and is inconsistent about taking Metformin and expresses that he has been thirstier than normal recently. No abdominal pain nausea or vomiting. He reports that he was routinely immunized as a child. Review of Systems Constitutional: denies: Fever Eyes: reports: Reviewed and negative Ears: reports: Reviewed and negative Nose: reports: Reviewed and negative Throat: reports: Other (Left-sided facial parotid gland swelling). denies: Dental pain / toothache, Oral lesions / sores, Sore throat Cardiac: reports: Reviewed and negative Respiratory: reports: Reviewed and negative GI: reports: Reviewed and negative : reports: Reviewed and negative Skin: reports: Reviewed and negative Musculoskeletal: reports: Reviewed and negative Neurologic: reports: Reviewed and negative Endocrine: reports: Polydypsia PD PAST MEDICAL HISTORY - Past Medical History Cardiovascular: None Respiratory: None Neuro: None Endocrine/Autoimmune: Type 2 diabetes GI: Hemorrhoids : None HEENT: None Psych: None Musculoskeletal: Osteoarthritis Derm: None - Past Surgical History Past Surgical History: Yes Ortho: Knee replacement HEENT: Tonsil/Adenoidectomy - Present Medications Home Medications: Ambulatory Orders Medication Instructions Recorded Confirmed Amox/Clav 875/125 [Augmentin] 1 each PO Q12H #20 tablet 08/29/19 Metformin HCl [Metformin HCl ER] 500 mg PO DAILY 08/29/19 08/29/19 Clindamycin HCl [Clindamycin 300MG 300 mg PO Q6H #56 capsule 09/18/19 CAP] Oxycodone HCl/Acetaminophen 1 - 2 each PO Q6H PRN #10 tablet 09/18/19 [Percocet 5-325 mg Tablet] Sulfamethox/Trimeth 800/160 1 each PO BID #14 tablet 10/12/19 [Bactrim Ds 800/160] Cyclobenzaprine [Flexeril] 10 mg PO TID PRN #20 tablet 05/25/20 Oxycodone HCl/Acetaminophen 1 - 2 each PO Q6H PRN #14 tablet 05/25/20 [Percocet 5-325 mg Tablet] Amox/Clav 875/125 [Augmentin] 1 each PO Q12H #20 tab 08/10/20 HYDROcod/ACETAM 5/325 [[place] 5/325] 1 each PO BID PRN #5 08/10/20 - Allergies Allergies/Adverse Reactions: Allergies Allergy/AdvReac Type Severity Reaction Status Date / Time aspirin Allergy Rash Verified 08/10/20 13:49 NSAIDS (Non-Steroidal Allergy Rash Verified 08/10/20 13:49 Anti-Inflamma - Social History Does the pt smoke?: No Smoking Status: Never smoker Does the pt drink ETOH?: Yes Does the pt have substance abuse?: No - Immunizations Immunizations are current?: Yes - POLST Patient has POLST: No PD ED PE EXPANDED - General General: Alert, No acute distress, Well developed/nourished - HEENT HEENT: Moist mucous membranes, Other (Dentition in good repair. No trismus. Mild amount of swelling and tenderness along the left parotid gland extending to the angle of the mandible. No anterior cervical neck lymphadenopathy.) Results - Vitals Vitals: Vital Signs - 24 hr 08/10/20 08/10/20 13:43 14:31 Temperature 36.5 C 36.8 C Heart Rate 90 105 H Respiratory 18 15 Rate Blood Pressure 151/84 H 142/90 H O2 Saturation 97 97 Oxygen O2 Source [With Activity] Room air O2 Source Room air - Labs Labs: Laboratory Tests 08/10/20 08/10/20 14:03 14:03 WBC 9.6 RBC 5.17 Hgb 14.9 Hct 45.1 MCV 87.2 MCH 28.8 MCHC 33.0 RDW 12.5 Plt Count 310 MPV 9.6 Neut # (Auto) 7.3 H Lymph # (Auto) 1.6 [place] # (Auto) 0.5 Eos # (Auto) 0.2 Baso # (Auto) 0.0 Absolute Nucleated RBC 0.00 Nucleated RBC % 0.0 Sodium 133 L Potassium 4.3 Chloride 99 L Carbon Dioxide 25 Anion Gap 9.0 BUN 18 Creatinine 1.0 Estimated GFR (MDRD) 75 L Glucose 215 H Calcium 9.2 Total Bilirubin 0.9 AST 18 ALT 23 Alkaline Phosphatase 92 Total Protein 7.9 Albumin 3.9 Globulin 4.0 Albumin/Globulin Ratio 1.0 Lipase 34 - Rads (name of study) CT max fac Radiology: Final report received (Imaging findings most compatible with left parotid gland inflammation. No parotid duct dilation suspicious masses or drainable abscess can be seen.) PD MEDICAL DECISION MAKING - ED course Complexity details: reviewed results, re-evaluated patient, considered differential, d/w patient ED course: Old diabetic male presents the emergency department for acute left facial swelling. Exam findings are consistent with proctitis however given the history of poorly managed diabetes CT maxillofacial was obtained and it is also consistent with proctitis but no drainable abscess or duct dilation is seen. This gentleman will be started on a 10-day course of Augmentin. I will write a very very limited prescription for [place] given the pain as well as advising the patient to suck on sour lemon drops. Advise very close follow-up with primary care provider. Emergent return precautions discussed. Departure - Departure Disposition: Home, Self Care Clinical Impression: Parotiditis Condition: Stable Record reviewed to determine appropriate education?: Yes Instructions: ED Submandibular Gland Infec Follow-Up: Eddi Devries MD [Primary Care Provider] - Prescriptions: Amox/Clav 875/125 [Augmentin] 1 each PO Q12H #20 tab HYDROcod/ACETAM 5/325 [[place] 5/325] 1 each PO BID PRN #5 PRN Reason: Pain Comments: Raheem please suck on sour lemon drops 2-3 times a day. This can help with parotid gland inflammation. However I would like you to fill the prescription for the antibiotics and begin taking as directed. With the antibiotics and sucking on sour drops I would expect your pain and swelling to be markedly better in the next 48 to 72 hours. If symptoms or not improving, you have fevers or cannot open your mouth fully please return immediately to the ER. Please discuss this ED visit with your primary care provider.
[2020-08-10 14:44] LABS: ALBUMIN 3.9 g/dL (3.2-5.5); BILIRUBIN,TOTAL 0.9 mg/dL (0.2-1.0); CALCIUM 9.2 mg/dL (8.5-10.3); TOTAL PROTEIN 7.9 g/dL (6.7-8.2)
[2020-08-10] MEDS ORDERED: IOVERSOL 320 100 ML VIAL IVP ONE ×2 (15:05→16:58)
--- NOTE | 2020-08-10 16:48 | CT Report ---
PROCEDURE: MAXILLOFACIAL W INDICATIONS: maxilofacial swelling; ? parotitis CONTRAST: IV CONTRAST: Optiray 320 ml: 100 PO CONTRAST: *NO PO CONTRAST TECHNIQUE: After the administration of intravenous contrast, 3.0 mm axial sections acquired from the mid-neck to the frontal sinuses, with coronal reformatting. For radiation dose reduction, the following was use d: automated exposure control, adjustment of mA and/or kV according to patient size. COMPARISON: Correlation is made with cervical spine plain films 07/15/2018. FINDINGS: Image quality: Excellent. Soft tissues: The left parotid gland appears enlarged and hyperenhancing compared to the right. Mild surrounding inflammatory changes are seen within the adjacent fat. No drainable abscess is seen. Mildly prominent, yet normal appearing lymph nodes seen involving both parotid glands. No [place] parot ic duct dilatation can be seen. No suspicious masses can be seen. No drainable abscess can be seen at this site or elsewhere. On the left at level 2A, there is a prominent lymph node that demonstrates a normal preserved fatty h ilum, as on series 4 image 23 measuring 10 x 17 mm in greatest axial dimension. Vascular: Visualized vascular structures appear patent throughout. Bony vascular foramina and canal s appear normal. Bones: Facial bones appear intact, without fractures, erosions, or destruction. Visualized portions of the skull base and auditory canals also appear normal. Focal C6-C7 degenerative change is incide ntally noted. Sinuses: Paranasal sinuses are aerated without fluid levels, mucosal thickening, or mucoceles. Mast oid air cells are aerated. IMPRESSION: These imaging findings are most compatible with left parotid gland inflammation. No parotid duct dilatation is seen. No suspicious masses are seen. No findings of a drainable abscess can be seen. There is an enlarged left level 2A lymph node seen adjacent to the inflammatory change, which is cons idered to be reactive. If clinically appropriate, please consider a follow-up CT in 6-8 weeks for further evaluation. Incidental note is made of: Focal C6-C7 degenerative change Reviewed by: Daniel Romero MD on 08/10/2020 3:46 PM [place] Approved by: Daniel Romero MD on 08/10/2020 3:46 PM [place] Station ID: [id number]
[2020-08-10] MEDS ORDERED: AMOX/CLAV 875 MG/125 MG TABLET PO STA (17:21)
[2020-08-10 17:36] VITALS: BP 148/88
== END 2020-08-10 17:37 | disposition home or self-care (01) ==
LOC: ED 13:32
DX: K11.20 Sialoadenitis, unspecified (principal); E11.9 Type 2 diabetes mellitus without complications; Z79.84 Long term (current) use of oral hypoglycemic drugs; Z91.14 Patient's other noncompliance with medication regimen
CPT/HCPCS: 36415; 70487; 80053; 83690; 85025; 99283; 99284; A9270; Q9967